=== PATIENT | male | born 1995 | race African-American/Black ===

== ENCOUNTER 2016-08-14 08:39 | Emergency (ER) | payer SELFPAY ==
[~2016-08-14] VITALS: Ht 180.3 cm; Wt 61.6 kg
[~2016-08-14 08:39] MED LIST: ALBU8.5H5 INH; HYDR-3307 PO; IBUP400T PO
[2016-08-14 10:56] VITALS: BP 117/79
== END 2016-08-14 11:00 | disposition home or self-care (01) ==
LOC: ED 09:49
DX: S02.609A Fracture of mandible, unspecified, initial encounter for closed fracture (principal); G40.909 Epilepsy, unspecified, not intractable, without status epilepticus; F12.10 Cannabis abuse, uncomplicated; Y04.0XXA Assault by unarmed brawl or fight, initial encounter; Y93.89 Activity, other specified; Y99.8 Other external cause status; Y92.89 Other specified places as the place of occurrence of the external cause
CPT/HCPCS: 70100

== ENCOUNTER 2018-04-04 21:50 | Emergency (ER) | payer MEDICAID ==
[~2018-04-04] VITALS: Ht 175.3 cm; Wt 60.8 kg
[~2018-04-04 21:50] MED LIST changes: +IBUP-1221 PO; -IBUP400T PO
[2018-04-04 21:52] VITALS: BP 102/46
== END 2018-04-04 22:29 | disposition home or self-care (01) ==
LOC: ED 22:26
DX: H57.12 Ocular pain, left eye (principal)
CPT/HCPCS: 99283

== ENCOUNTER 2019-06-12 01:45 | Emergency (ER) | payer MEDICAID ==
[~2019-06-12] VITALS: Ht 175.3 cm; Wt 64.1 kg
[~2019-06-12 01:45] MED LIST changes: -HYDR-3307 PO; +HYDR-36 PO
[2019-06-12 01:51] VITALS: BP 115/65
[2019-06-12] MEDS ORDERED: PROPARACAINE OPHTH 0.5%, 15ML ONE (02:05)
[2019-06-12] MEDS ORDERED: FLUORESCEIN OPHTHALMIC 1 MG STRIP ONE (02:05)
== END 2019-06-12 02:25 | disposition home or self-care (01) ==
LOC: ED 02:18
DX: H10.232 Serous conjunctivitis, except viral, left eye (principal); G40.909 Epilepsy, unspecified, not intractable, without status epilepticus; F17.200 Nicotine dependence, unspecified, uncomplicated; Z86.19 Personal history of other infectious and parasitic diseases
CPT/HCPCS: 99283

== ENCOUNTER 2020-01-21 09:07 | Emergency (ER) | payer MEDICAID ==
[~2020-01-21] VITALS: Ht 175.3 cm; Wt 63.0 kg
[~2020-01-21 09:07] MED LIST changes: +HYDR-3246 PO; -HYDR-36 PO
[2020-01-21 09:19] VITALS: BP 135/85
--- NOTE | 2020-01-21 09:37 | NUR ---
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
--- NOTE | 2020-01-21 10:45 | NUR ---
NO ANSWER IN LOBBY AT THIS TIME.
--- NOTE | 2020-01-21 11:10 | NUR ---
NO ANSWER IN LOBBY AT THIS TIME.
== END 2020-01-21 11:17 | disposition left against medical advice (07) ==
LOC: ED 09:10
DX: K13.79 Other lesions of oral mucosa (principal); Z53.21 Procedure and treatment not carried out due to patient leaving prior to being seen by health care provider